=== PATIENT | female | born 1995 | race Caucasian/White ===

== ENCOUNTER 2019-01-17 03:22 | Emergency (ER) | payer BC ==
[~2019-01-17] VITALS: Ht 165.1 cm; Wt 52.2 kg
[2019-01-17] MEDS ORDERED: predniSONE 50 MG TABLET PO ONE (04:30)
[2019-01-17] MEDS ORDERED: predniSONE 50 MG TABLET ONE (04:31)
--- NOTE | 2019-01-17 04:32 | NUR ---
PT WAS EVALUATED BY DR ZAMUDIO. PT WAS D/C'd TO HOME. D/C INSTRUCTIONS GIVEN TO THE PT.
[2019-01-17 04:34] VITALS: BP 125/77
== END 2019-01-17 04:34 | disposition home or self-care (01) ==
LOC: ER 03:26
DX: J01.00 Acute maxillary sinusitis, unspecified (principal)
CPT/HCPCS: 99283; J7512; A4663